=== PATIENT | female | born 1965 ===

== ENCOUNTER 2020-08-24 18:40 | Emergency (ER) | payer BC ==
[~2020-08-24] VITALS: Ht 167.6 cm; Wt 99.0 kg
--- NOTE | 2020-08-24 19:16 | NUR ---
THIS IS A 55F THAT COMES IN W/ C/O SUPRAPUBIC PAIN THAT STARTED SUDDENLY THIS MORNING, PT DENIES PAINFUL URINATION, N/V/D, DENIES RECENT TRAUMA/ INJURY. PT CONNECTED TO MONITORING VSS, PT EDUCATED ON NEED FOR URINE SAMPLE AND VERBALIZES UNDERSTANDING OF CLEAN CATCH.
--- NOTE | 2020-08-24 19:37 | NUR ---
ERP TO BEDSIDE FOR EVAL AT THIS TIME, PIV STARTED, LABS DRAWN
[2020-08-24 19:56] LABS: BASOPHILS % (AUTO) 1 % (0-1); EOSINOPHILS % (AUTO) 2 % (1-7); LYMPHOCYTES % (AUTO) 34 % (22-44); MEAN CORPUSCULAR HEMOGLOBIN 30.9 pg (27.0-34.8); MEAN CORPUSCULAR HGB CONC 34.5 g/dL (32.4-35.8); MEAN PLATELET VOLUME 7.8 fL (7.4-10.4); MONOCYTES % (AUTO) 6 % (2-9); NEUTROPHILS % (AUTO) 58 % (42-75); PLATELET COUNT 319 x10^3/uL (130-400); RED CELL DISTRIBUTION WIDTH 13.2 % (9.6-15.2)
[2020-08-24] MEDS ORDERED: SODIUM CHLORIDE FLUSH 10ML SYR IVF ONE (20:00)
[2020-08-24] MEDS ORDERED: HYDROmorphone 1 MG/ML, 1ML INJ IV ONE (20:00)
[2020-08-24 20:02] LABS: ALBUMIN 3.7 g/dL (3.4-5.0); ANION GAP 5 mmol/L (5-15); CALCIUM 8.9 mg/dL (8.5-10.1); CHLORIDE 108 mmol/L (98-107); CREATININE 1.08 mg/dL (0.55-1.02)
[2020-08-24] MEDS ORDERED: HYDROmorphone 1 MG/ML, 1ML INJ ONE (20:08)
[2020-08-24] MEDS ORDERED: ONDANSETRON 2MG/ML, 2ML ONE (20:08)
[2020-08-24 20:16] VITALS: BP 133/83
--- NOTE | 2020-08-24 20:16 | NUR ---
pt medicated per apr 13rights verified, urine sent to lab, pt reports improvement in pain at this time
[2020-08-24 20:51] LABS: MICROSCOPIC INDICATED
[2020-08-24] MEDS ORDERED: POTASSIUM CHLORIDE 40 MEQ in SODIUM CHLORIDE 0.9% 500 ML IV ONE (21:00)
[2020-08-24] MEDS ORDERED: OMNIPAQUE 350 MG/ML, 100ML BOTTLE ONE (21:12)
--- NOTE | 2020-08-24 21:13 | NUR ---
MED REQ FROM PHARM
[2020-08-24] MEDS ORDERED: CEFTRIAXONE 1,000 MG in DEXTROSE 5% 50 ML IVPB ONE (21:30)
[2020-08-24] MEDS ORDERED: POTASSIUM CHLORIDE 20 MEQ PACKET PO ONE (22:00)
[2020-08-24] MEDS ORDERED: PHENAZOPYRIDINE 200 MG TABLET PO ONE (22:00)
[2020-08-24] MEDS ORDERED: PHENAZOPYRIDINE 200 MG TABLET ONE (22:01)
[2020-08-24] MEDS ORDERED: POTASSIUM CHLORIDE 20 MEQ PACKET ONE (22:02)
--- NOTE | 2020-08-24 22:16 | NUR ---
Patient/Caregiver given discharge instructions and they have confirmed that they understand the instructions. Patient ambulatory with steady gait. NAD, all questions answered appropriately, denies additional needs at this time. No personal belongings left in room after discharge.
== END 2020-08-24 22:17 | disposition home or self-care (01) ==
LOC: ED 21:53
DX: N30.00 Acute cystitis without hematuria (principal); I10 Essential (primary) hypertension; Z90.710 Acquired absence of both cervix and uterus; F17.200 Nicotine dependence, unspecified, uncomplicated
CPT/HCPCS: 36415; 74177; 80048; 81001; 82040; 85025; 87086; 96365; 96375; 99285; J0696; J1170; Q9967